=== PATIENT | male | born 1960 | race Caucasian/White ===

== ENCOUNTER 2018-08-07 18:18 | Emergency (ER) | payer OTHER ==
[~2018-08-07] VITALS: Ht 182.9 cm; Wt 102.1 kg
[2018-08-07 20:04] LABS: Basophils # (auto) 0.1 uL; Eosinophils # (auto) 0.1 uL; Hemoglobin 19.1 g/dL (13.5-17.5); Lymphocytes # (auto) 1.7 uL; Lymphocytes % (auto) 18.2 % (10.0-50.0); Monocytes # (auto) 0.7 uL; Nucleated Red Blood Cells % 0.4 %
[2018-08-07 20:07] LABS: Albumin 2.8 g/dL (3.4-5.0); Calcium 8.7 mg/dL (8.5-10.1); Potassium 3.9 mmol/L (3.5-5.1)
[2018-08-07 20:09] LABS: Basophils % (auto) 0.6 % (0.0-2.0); Eosinophils % (auto) 1.1 % (0.0-7.0); Mean Corpuscular Hemoglobin 32.8 pg (28.0-32.0); Mean Corpuscular Volume 96.6 fL (80.0-100.0); Monocytes % (auto) 7.5 % (0.0-12.0); Neutrophils # (auto) 6.7 uL; Neutrophils % (auto) 72.6 % (37.0-80.0); Platelet Count (auto) 187 10^3/uL (140-450); Red Blood Cells 5.81 10^6/uL (4.5-5.90); Red Cell Distribution Width 16.1 % (11.8-14.3); White Blood Cell 9.2 10^3/uL (4.4-10.8)
[2018-08-07 20:13] LABS: BUN/Creatinine Ratio 14.5; Bilirubin, Total 1.6 mg/dL (0.2-1.0); Total Protein 6.6 g/dL (6.4-8.2)
[2018-08-07 20:15] LABS: Hematocrit 56.1 % (41.0-53.0)
[2018-08-07] MEDS ORDERED: FUROSEMIDE 20 MG/2 ML VIAL IV ONE (21:15)
[2018-08-08 00:53] VITALS: BP 148/92
== END 2018-08-08 00:54 | disposition home or self-care (01) ==
LOC: ER 18:28
DX: I50.9 Heart failure, unspecified (principal); R79.89 Other specified abnormal findings of blood chemistry; R73.9 Hyperglycemia, unspecified
CPT/HCPCS: 36415; 71046; 80053; 83880; 84484; 85025; 93005; 96374; 99284; J1940